=== PATIENT | male | born 1950 | race Caucasian/White ===

== ENCOUNTER → 2017-06-17 | Outpatient (CLI) | payer OTHER ==
[~2017-06-17] MED LIST: HYZAAR 25 MG-101 TAB PO; LOTENSIN HCT 201 TAB PO; MULTIPLE VITAMI1 CAP PO; NORCO 325 MG-51 TAB PO; NORCO 325 MG-7.1 TAB PO; PRILOSEC 20MG20 MG PO; ZOCOR 40MG40 MG PO
== END ==
LOC: COL.RAD 07:18
DX: R14.0 Abdominal distension (gaseous) (principal)
CPT/HCPCS: A9541

== ENCOUNTER → 2017-06-27 | Outpatient (CLI) | payer OTHER | LOC: COL.RAD 12:38 | DX: K44.9 Diaphragmatic hernia without obstruction or gangrene (principal); K21.9 Gastro-esophageal reflux disease without esophagitis ==

== ENCOUNTER → 2021-01-05 | Outpatient (CLI) | payer OTHER | LOC: COL.RAD | DX: M89.38 Hypertrophy of bone, other site (principal) ==

== ENCOUNTER 2021-08-30 11:41 | Inpatient (IN) | payer OTHER, MEDICARE ==
[~2021-08-30] VITALS: Ht 180.3 cm; Wt 100.3 kg
[2021-09-25] VITALS (12 sets, daily range): BP systolic 114–162; BP diastolic 67–99; PULSE 56–99; TEMP 97.7–98.5
[2021-09-25 10:00] LABS: BASO # 0.1 K/mm3 (0.0-0.2); BASO % 0.9 % (0.0-2.0); EOS # 0.1 K/mm3 (0.0-0.7); EOS % 1.2 % (0-4.0); GRAN # 2.7 K/mm3 (1.4-6.5); GRAN % 48.5 % (42.2-75.2); HEMATOCRIT 47.8 % (42.0-52.0); LYMPH # 2.2 K/mm3 (1.2-3.4); LYMPH % 38.8 % (20.0-51.0); MEAN CELL VOLUME 85 fl (80.0-100.0); MEAN CORPUSCULAR HEMOGLOBIN 29 pg (27.0-31.0); MEAN CORPUSCULAR HGB CONC 34 g/dl (33.0-37.0); MEAN PLATELET VOLUME 9.2 fl (7.4-10.4); MONO # 0.6 K/mm3 (0.1-0.6); MONO % 10.4 % (1.7-9.3); PLATELET COUNT 203 K/mm3 (130-400); REDCELL DISTRIBUTION WIDTH-CV 13.2 % (11.5-14.5)
--- NOTE | 2021-09-25 10:10 | NUR ---
The patient ambulated back to [facility] independently using a steady gait and appeared to tolerate the activity well. Vital signs obtained. Cosnent signed. Assessment completed. 18G IV started in left hand with one stick, LR infusing without difficulty. Blood obtained from IV start for labs as ordered. Call light is within reach. Warm blankets provided. The patient denies any further needs. Son brought back to be at his bedside. Will continue to monitor the patient.
[2021-09-25 10:15] LABS: ALBUMIN 4.2 gm/dL (3.4-4.8); BILIRUBIN,TOTAL 0.6 mg/dL (0.2-1.2); CALCIUM 9.9 mg/dL (8.4-10.2); CREATININE, serum 1.06 mg/dL (0.72-1.25); POTASSIUM 3.9 mmol/L (3.5-4.5); TOTAL PROTEIN 7.3 gm/dL (6.2-8.1)
[2021-09-26 02:46] VITALS: BP 143/88; PULSE 67; TEMP 98
[2021-09-26 06:55] LABS: HEMATOCRIT 40.4 % (42.0-52.0)
[2021-09-26 07:05] LABS: HEMOGLOBIN 13.6 g/dl (13.5-18.0)
[2021-09-26 07:06] LABS: CALCIUM 9.5 mg/dL (8.4-10.2); CREATININE, serum 1.11 mg/dL (0.72-1.25); POTASSIUM 4.1 mmol/L (3.5-4.5)
[2021-09-26 07:56] VITALS: BP 150/76; PULSE 56; TEMP 98
--- NOTE | 2021-09-26 08:00 | NUR ---
Patient sitting up in bed mask on face. A&Ox4. VSS. IV CDI. Denies pain and discomfort. Newell intact. Lap sites ABD CDI. Patient ambulating in the hallway independently. Tolerating PO intake. No further needs expressed. Call light within reach
--- NOTE | 2021-09-26 10:13 | NUR ---
[employer] met with patient to discuss discharge planning. Patient lives in [place] and reports his son, Hardeep and daughter, Mary (ph#[phone]) live with him. Patient sees Dr. Willams for primary care and obtains medications from [facility] with no difficulties. Patient does not use DME and reports independence with ADLS. Patient advised he has DPOA-HC that designate two of his children, Markel and Mary. Patient plans to return home upon discharge. Discharge Plan: Home
[2021-09-26 11:04] VITALS: BP 167/69; PULSE 60; TEMP 98.1
--- NOTE | 2021-09-26 11:39 | NUR ---
First visit from the pocket maker. No needs right now.
--- NOTE | 2021-09-26 12:00 | NUR ---
Discharge paperwork reviewed with the patient and family. Nurse demonstrated to the patient how to change hay catheter to a leg bag. Hay/leg bag education given verbally and printed information given. Patient and family verbalized an understanding. IV removed, tip intact. Bandaid applied. Patient ambulated to the front entrance independently. Discharge paperwork and personal belongings with the patient. No further needs expressed.
== END 2021-09-26 12:00 | disposition home or self-care (01) | DRG 708 ==
LOC: INPTSU 09-25 09:06 → SURG 09-25 09:06
PROVIDERS: ADMIT Urology
PROC: 8E0W4CZ Robotic Assisted Procedure of Trunk Region, Percutaneous Endoscopic Approach (ICD-10-PCS; 2021-09-25)
PROC: 0VT04ZZ Resection of Prostate, Percutaneous Endoscopic Approach (ICD-10-PCS; principal; 2021-09-25 11:00)
DX: C61 Malignant neoplasm of prostate (principal)
CPT/HCPCS: A4314; A9284; J0330; J0690; J1100; J1885; J2405; J2704; J2710; J3010; J7120

== ENCOUNTER 2022-07-17 11:29 | Day surgery (SDC) | payer OTHER ==
[2022-07-17] VITALS (8 sets, daily range): BP systolic 134–162; BP diastolic 67–94; PULSE 56–86; TEMP 97.7–98.3
[~2022-07-17] VITALS: Ht 180.3 cm; Wt 96.4 kg
[2022-07-17 12:16] LABS: BASO % 0.7 % (0.0-2.0); EOS # 0.1 K/mm3 (0.0-0.7); EOS % 2.2 % (0.0-4.0); GRAN # 2.5 K/mm3 (1.4-6.5); GRAN % 42.6 % (42.2-75.2); HEMATOCRIT 48.1 % (42.0-52.0); HEMOGLOBIN 16.2 g/dl (13.5-18.0); LYMPH # 2.7 K/mm3 (1.2-3.4); LYMPH % 45.1 % (20.0-51.0); MEAN CELL VOLUME 86 fl (80.0-100.0); MEAN CORPUSCULAR HEMOGLOBIN 29 pg (27-31); MEAN CORPUSCULAR HGB CONC 34 g/dl (33.0-37.0); MEAN PLATELET VOLUME 9.6 fl (7.4-10.4); MONO # 0.5 K/mm3 (0.1-0.6); MONO % 9.2 % (1.7-9.3); PLATELET COUNT 189 K/mm3 (130-400); RED BLOOD COUNT 5.58 M/mm3 (4.20-5.60); REDCELL DISTRIBUTION WIDTH-CV 13.3 % (11.5-14.5)
[2022-07-17 12:34] LABS: CALCIUM 10.3 mg/dL (8.4-10.2); CREATININE, serum 1.14 mg/dL (0.72-1.25); POTASSIUM 3.9 mmol/L (3.5-4.5)
[2022-07-17] MEDS ORDERED: NORCO 325 MG-51 TAB PO (18:27)
--- NOTE | 2022-07-17 22:33 | NUR ---
PATIENT UP TO ROOM 329 AT 1940. ALERT AND ORIENTED. IN GOOD SPIRITS. FAMILY AT BEDSIDE. POSTOP VSS. TOLERATED PO FOOD AND FLUIDS. STANDBY ASSIST TO BATHROOM AND VOIDED WITHOUT ISSUE. X3 ABD LAP SITES CDI WITH GLUE AND X1 SMALL ABD MIDLINE CDI WITH GLUE. ABD BINDER IN PLACE. IV TO R HAND DISCONTINUED. WEANED OFF O2 WITHOUT ISSUE. DISCUSSED DISCHARGE PAPERWORK AND TEACHING WITH PATIENT AND FAMILY. ALL QUESTIONS ANSWERED. PATIENT DISCHARGED AT 2200 TO HOME WITH FAMILY VIA WHEELCHAIR.
== END 2022-07-17 22:43 | disposition home or self-care (01) ==
LOC: SDCO 11:29 → SURG 22:40 → SDCO 22:40 → SURG 22:43 → SDCO 22:43
PROVIDERS: Surgery
DX: K43.2 Incisional hernia without obstruction or gangrene (principal); M62.08 Separation of muscle (nontraumatic), other site; I10 Essential (primary) hypertension; K21.9 Gastro-esophageal reflux disease without esophagitis; Z79.899 Other long term (current) drug therapy; Z90.79 Acquired absence of other genital organ(s); Z85.46 Personal history of malignant neoplasm of prostate
CPT/HCPCS: OP; C1781; J0690; J1100; J1170; J2370; J2405; J2704; J3010; J7120